=== PATIENT | female | born 1975 | race Caucasian/White ===

== ENCOUNTER 2017-06-11 15:23 | Emergency (ER) | payer BC ==
--- NOTE | 2017-06-11 15:35 | EDPHY ---
H & P Stated Complaint: mechanical fall down stairs - Personal History LMP (Females 10-55): IUD In Place Current Tetanus Diphtheria and Acellular Pertussis (TDAP): Yes - Medical/Surgical History Hx Asthma: No Hx Chronic Respiratory Disease: No Hx Diabetes: No Hx Cardiac Disease: No Hx Renal Disease: No Hx Cirrhosis: No Hx Alcoholism: No Hx HIV/AIDS: No Hx Splenectomy or Spleen Trauma: No Other PMH: hypothyroidism, depression - Social History Smoking Status: Never smoked Constitutional: Initial Vital Signs Temperature (C) 37.2 C 06/11/17 15:23 Heart Rate 75 06/11/17 15:23 Respiratory Rate 16 06/11/17 15:23 Blood Pressure 128/68 H 06/11/17 15:23 O2 Sat (%) 95 06/11/17 15:23 O2 Delivery Mode Room Air Allergies/Adverse Reactions: No Known Allergies Allergy (Unverified 06/11/17 15:29) Home Medications: Medication Instructions Recorded HYDROcodone/APAP 10/325 [Milton 1 - 2 each PO Q4-6PRN PRN #20 tab 06/11/17 10/325] PARoxetine MESYLATE 06/11/17 Synthroid 06/11/17 Medical Decision Making - Diagnostics Imaging Results: Imaging Impressions Chest CT 06/11/17 15:50 Impression: 1. Fractures involving the right 11th and 12th ribs and the right L1 transverse process. 2. No evidence of visceral injury within the chest or upper abdomen. Results called to Dr. Galloway at 5:[address] 06/11/17 17:07 Impression: 1. Right T11-L1 transverse process fractures. 2. Right 11th and 12th rib fractures. Message left with Joel Galloway M.D., on June 11, 2017 at [id number]. Imaging: Discussed imaging studies w/ residency program coordinator Radiologist, I viewed and interpreted images myself ED Course/Re-evaluation: CHIEF COMPLAINT: Right back/abdominal pain HISTORY OF PRESENT ILLNESS: The patient is a 41 y/o female arriving via EMS in a C-collar, complaining of right-sided abdominal pain secondary to a fall down several stairs at home. She has moderate pain in her right posterior ribs and right upper quadrant. She denies loss of consciousness, neck pain, dysuria, fever. She currently has an IUD and denies being . REVIEW OF SYSTEMS: A 10 point review of systems was performed and is negative with the exception of the elements mentioned in the history of present illness. PHYSICAL EXAM: HR, BP, O2 Sat, RR. Temp noted General Appearance: Alert, well hydrated, appropriate, and non-toxic appearing. Head: Atraumatic without scalp tenderness or obvious injury Eyes: Pupils equal, round, reactive to light and accommodation, EOMI, no trauma , no injection. Ears: Clear bilaterally, no perforation, normal landmarks Nose: Atraumatic, no rhinorrhea, clear. Throat: Mucus membranes moist. Neck: Supple, nontender, no lymphadenopathy. Respiratory: No retractions, no distress, no wheezes, and no accessory muscle use. Lungs are clear to auscultation bilaterally. Cardiovascular: Regular rate and rhythm, no murmurs, rubs, or gallops. Good capillary refill all extremities. Gastrointestinal: Moderate RUQ tenderness, right posterior rib tenderness, abdomen is soft, non-distended, no masses, no rebound, no guarding, no peritoneal signs. Musculoskeletal: Normal active ROM of all extremities, atraumatic. Neurological: Alert, appropriate, and interactive. Non-focal neuro. Skin: No rashes, good turgor, no nodules on palpation. Past medical history: Denies Past surgical history:Denies Family history: Noncontributory Social history: , lives in [place], non-smoker DIAGNOSTICS/PROCEDURES/CRITICAL CARE TIME: Chest CT: Nondisplaced fracture of proximal 11th and 12th rib, right nondisplaced T11-L1 fracture of transverse process. Lumbar spine CT: Nondisplaced fracture of proximal 11th and 12th rib, right L1 fracture of transverse process. Old fractures of ribs 6-9. DIFFERENTIAL DIAGNOSIS: The differential diagnosis for the patient's back pain included but was not limited to musculo-skeletal pain, epidural abscess, herniated disk, spinal fracture, rib fracture, and intra-abdominal causes including urinary system. MEDICAL DECISION MAKING: The patient is a 41 y/o female arriving in a c-collar who presents with right posterior rib and abdominal tenderness secondary to a fall down several stairs at home. She does not meet [place] head or neck CT requirements. Plan on pain management and chest CT to rule out traumatic injuries. 1mg IV Dilaudid and 4mg IV Zofran administered. 1537: C-collar was removed by myself. 1705: Spoke with Dr. Shelton Williamson, radiologist, patient has multiple vertebral rib fractures. Plan on lumbar CT for better imaging of vertebral fractures. 1900: Consulted with Dr. Antoinette Quiles, neurosurgeon. He agrees with me that the patient does not need a brace, but needs to follow up in 5-7 days. Reassessed patient and discussed imaging findings. Provided return precautions; patient is comfortable with this plan. - Data Points Laboratory Results: 06/11/17 16:01 POC Hgb 14.6 gm/dL gm/dL (12.6-16.3) POC Hct 43 % % (38-47) POC Sodium 142 mEq/L mEq/L (134-144) POC Potassium 3.8 mEq/L mEq/L (3.3-5.0) POC Chloride 105 mEq/L mEq/L (97-110) POC BUN 16 mg/dL mg/dL (7-23) POC Creatinine 0.7 mg/dL mg/dL (0.6-1.0) POC Glucose 111 mg/dL H mg/dL (70-100) Medications Given: Discontinued Medications Hydrocodone Bitart/Acetaminophen (Milton 5/325mg Prepack#6) 1 btl TAKEHOME EDNOW ONE Stop: 06/11/17 19:28 Last Admin: 06/11/17 19:36 Dose: 1 btl Hydromorphone HCl (Dilaudid) 1 mg IVP EDNOW ONE Stop: 06/11/17 15:50 Last Admin: 06/11/17 15:56 Dose: 1 mg Ondansetron HCl (Zofran) 4 mg IVP EDNOW ONE Stop: 06/11/17 15:50 Last Admin: 06/11/17 15:56 Dose: 4 mg Point of Care Test Results: 06/11/17 16:01 POC Sodium 142 POC Potassium 3.8 POC Chloride 105 POC BUN 16 POC Creatinine 0.7 POC Glucose 111 H Departure - Departure Disposition: Home, Routine, Self-Care Clinical Impression: Ribs, multiple fractures Qualifiers: Encounter type: initial encounter Fracture type: closed Laterality: right Qualified Code(s): S22.41XA - Multiple fractures of ribs, right side, initial encounter for closed fracture Lumbar transverse process fracture Qualifiers: Encounter type: initial encounter Fracture type: closed Qualified Code(s): S32.009A - Unspecified fracture of unspecified lumbar vertebra, initial encounter for closed fracture Fracture of thoracic transverse process Qualifiers: Encounter type: initial encounter Fracture type: closed Qualified Code(s): S22.009A - Unspecified fracture of unspecified thoracic vertebra, initial encounter for closed fracture Instructions: Hydrocodone/Acetaminophen (By mouth), Rib Fracture (ED), Thoracolumbar Fracture (ED) Additional Instructions: 1. Take 600mg of ibuprofen every 6-8 hours as needed for pain. 2. Take Milton as prescribed for severe pain. 3. Follow up with Dr. Antoinette Quiles, neurosurgeon, in the next 5-7 days. 4. Follow up with your primary care provider if you experience worsening symptoms. 5. Return to the ED if you experience numbness, weakness, severe redness or swelling around your fractures, fever, or other severe worsening of your symptoms. Referrals: Patient,NotPresent [Unknown] - As per Instructions Dav Quiles MD [Medical Doctor] - As per Instructions Prescriptions: HYDROcodone/APAP 10/325 [Milton 10/325] 1 - 2 each PO Q4-6PRN PRN #20 tab PRN Reason: Pain, Moderate Report Scribed for: Joel Galloway Report Scribed by: Ysabel Shah Date of Report: 06/11/17 Time of Report: 15:52
[2017-06-11] MEDS ORDERED: HYDROmorphONE/DILAUDID 1 MG/ML INJ IVP ONE (15:49)
[2017-06-11] MEDS ORDERED: ONDANSETRON 4 MG/2 ML VIAL IVP ONE (15:49)
[2017-06-11 16:08] VITALS: RESP 18; TEMP 98.2
[2017-06-11] MEDS ORDERED: IOPAMIDOL (ISOVUE-300) 100 ML BTL ONE (16:16)
[2017-06-11] MEDS ORDERED: HYDROCOD/APAP 5/325 PREPACK#6 BTL TAKEHOME ONE (19:27)
[2017-06-11 19:40] VITALS: BP 124/70; PULSE 75; O2SAT 93
== END 2017-06-11 19:40 | disposition home or self-care (01) ==
DX: S32.019A Unspecified fracture of first lumbar vertebra, initial encounter for closed fracture (principal); S22.089A Unspecified fracture of T11-T12 vertebra, initial encounter for closed fracture; S22.41XA Multiple fractures of ribs, right side, initial encounter for closed fracture; W10.8XXA Fall (on) (from) other stairs and steps, initial encounter; Y92.009 Unspecified place in unspecified non-institutional (private) residence as the place of occurrence of the external cause
CPT/HCPCS: 82947-QW; 96374; J1170; J2405; Q9967

== ENCOUNTER → 2017-11-17 | Outpatient (CLI) | payer BC | LOC: BMCIMAGING 15:37 | PROVIDERS: ATTEND Registered Nurse General Practice | DX: M50.322 Other cervical disc degeneration at C5-C6 level (principal); M25.78 Osteophyte, vertebrae; M46.02 Spinal enthesopathy, cervical region ==

== ENCOUNTER 2017-12-17 13:54 | Emergency (ER) | payer BC ==
[2017-12-17 14:05] VITALS: RESP 16; TEMP 98.4
[2017-12-17] MEDS ORDERED: MECLIZINE HCL 25 MG TAB PO ONE (14:43)
--- NOTE | 2017-12-17 14:43 | EDPHY ---
HPI/HX/ROS/PE/MDM Narrative: CHIEF COMPLAINT: Headache, vision complaints, numbness or tingling HISTORY OF PRESENT ILLNESS: The patient is a 42 y/o female complaining of weakness in her legs, numbness and tingling in her hands and legs, and headache , beginning in October. She had vertebral fractures in June. In October she developed mid to low back pain accompanied by weakness in her legs. She later developed neck pain, primarily on the left side with tingling in her left arm and both hands. The neck pain was associated with a headache extending from the back of her neck toward the front of her head. Four days ago she began seeing double (side by side) and difficulty with dark color contrast with her headaches. The tingling in her left arm has gotten worse and is described as an electric shock down her arm or leg. She has associated dizziness and nausea with eye movement. She denies vomiting, chest pain, or other associated symptoms. She has been taking 600 mg of ibuprofen to control her symptoms. She had cervical spine X-rays but no other imaging studies thus far. She denies fever, alcohol use, cigarette use, or trauma since June. She has taken acetaminophen, caffeine, and aspirin for the headache this morning. No fever, chills, chest pain, shortness of breath, palpitations, vomiting, diarrhea, urinary complaints, lightheadedness. REVIEW OF SYSTEMS: Aside from elements discussed in the HPI, a comprehensive 10-point review of systems was reviewed and is negative. PAST MEDICAL HISTORY: IUD (Mirena), vertebral fractures SOCIAL HISTORY: Non-smoker, lives in [place], VITAL SIGNS: Reviewed by me GENERAL: Well-developed, well-nourished, a bit uncomfortable secondary to pain on the left side of her neck and headache. A bit tearful. HEENT: Atraumatic. Eyes: No icterus, no injection. EOMI. STEVE. Mouth: moist mucous membranes. No erythema or lesions. Neck: No midline tenderness. Spasm and tenderness on the left paraspinous region. LUNGS: Clear to auscultation bilaterally, no wheezes, rhonchi or rales. CARDIAC: Regular rate and rhythm, no rubs, murmurs or gallops. ABDOMEN: Soft, nontender, nondistended, bowel sounds normal. BACK: No CVA tenderness. EXTREMITIES: No trauma. No edema. Range of motion is normal throughout. NEURO: Alert and oriented. Moving all four extremities easily and equally. Cranial nerves II through XII are examined and are intact (visual acuity not tested). Left director of integrated marketing strength weak compared to right. Left leg strength weak. Sensation is intact to light touch over all 4 extremities. Extraocular movements normal. SKIN: Warm and dry, no rash. PSYCHIATRIC: Normal mentation, no agitation. ED Course: The patient presents with a 2 month long history of increasing weakness in legs , back pain, neck pain, headache, and visual disturbances. She has history of a vertebral fracture in June. On exam, she has weakened left director of integrated marketing strength and weakened left leg. Sensation and extraocular movement is normal. Plan for head, cervical, and lumbar MRIs, and labs including CBC, metabolic panel, and beta-HCG. Symptom management with cyclobenzaprine, meclizine, and lidocaine patch. MRI of the brain normal, no evidence of demyelinating disease. MRI cervical spine does demonstrate disc herniation at C5-C6. Worse on the right than on the left. MRI of the lumbar spine demonstrates L5-S1 disc herniation with impingement on the left S1 nerve root. Patient was reexamined after MRIs. She reports her neck discomfort is significantly improved with a lidocaine patch. She was reassured with the findings on the MRI. I do not believe the patient needs any further imaging studies in or admission to the hospital at this time. She needs to follow up with Neurosurgery and potentially Neurology to evaluate her headaches with diplopia. Patient does say she has a history of migraines although her migraine headaches have not presented similar to today's episode. She is comfortable being discharged with a Medrol Dosepak, nonsteroidals, muscle relaxants. MDM: After history was obtained and physical exam performed, the differential for patient's symptom complex was considered including but not limited to muscular pain, herniated disc, TIA, stroke, multiple sclerosis, demyelinating disease. - Data Points Imaging Results: Brain MRI Impression: Normal brain. No white matter disease, hemorrhage, mass, or evidence of ischemia. Findings discussed with Emergency Department physician, Zaina Pham M.D., on December 17, 2017 at 1629. Dictated By: Tae Parra MD Cervical spine MRI Impression: 1. Normal cervical spine spinal cord. No white matter disease, cord compression, or edema. 2. C5-C6: Broad-based osteophyte disk complex, worse off to the right, results in mild to moderate central canal narrowing, moderate right ventral lateral recess narrowing, and moderate right neural foraminal stenosis. 3. Minimal central canal narrowing at C6-C7 due to a mild broad-based osteophyte disk complex. Findings discussed with Emergency Department physician, Zaina Pham M.D., on December 17, 2017 at 1709. Dictated By: Tae Parra MD Lumbar spine MRI: Impression: 1. Capacious lumbar spinal canal. No compression of the conus medullaris or lower aspect of the spinal cord. 2. L5-S1: Left paracentral disk herniation (protrusion) resulting in minimal mass effect upon the left S1 nerve root in the ventral lateral recess. 3. Normal T12-L1 through L4-L5 disks. Findings discussed with Emergency Department physician, Zaina Pham M.D., on December 17, 2017 at 1725. Dictated By: Tae Parra MD Imaging: Discussed imaging studies w/ butt presser Radiologist Laboratory Results: Laboratory Results 12/17/17 14:40 12/17/17 14:40 Medications Given: Discontinued Medications Cyclobenzaprine HCl (Flexeril) 10 mg PO EDNOW ONE Stop: 12/17/17 14:45 Last Admin: 12/17/17 14:54 Dose: 10 mg Meclizine HCl (Meclizine Hcl) 25 mg PO EDNOW ONE Stop: 12/17/17 14:44 Last Admin: 12/17/17 14:54 Dose: 25 mg Miscellaneous Medication (Icy Hot Lidocaine/Menthol 4%/1% Patch) 1 patch TD EDNOW ONE Stop: 12/17/17 14:45 Last Admin: 12/17/17 14:55 Dose: 1 patch Prednisone (Prednisone) 60 mg PO EDNOW ONE Stop: 12/17/17 17:33 Last Admin: 12/17/17 17:37 Dose: 60 mg General Time Seen by Provider: 12/17/17 14:17 Initial Vital Signs: Initial Vital Signs Temperature (C) 36.9 C 12/17/17 14:02 Heart Rate 67 12/17/17 14:02 Respiratory Rate 16 12/17/17 14:02 Blood Pressure 140/63 H 12/17/17 14:02 O2 Sat (%) 97 12/17/17 14:02 O2 Delivery Mode Room Air Allergies/Adverse Reactions: No Known Allergies Allergy (Unverified 06/11/17 15:29) Home Medications: Medication Instructions Recorded PARoxetine MESYLATE 06/11/17 Synthroid 06/11/17 Cyclobenzaprine [Flexeril 10 MG 10 mg PO TID PRN #20 tab 12/17/17 (RX)] methylPREDNISolone [Medrol Dose 4 mg PO DAILY #1 ea 12/17/17 [place]] Departure - Departure Disposition: Home, Routine, Self-Care Clinical Impression: Neck pain, Back pain, Headache Condition: Good Instructions: Lumbar Disc Herniation (ED), Acute Headache (ED), Cervical Disc Herniation (ED), Lower Back Exercises (ED) Additional Instructions: Please follow up with your primary care physician as soon as possible. You been given a prescription for Medrol Dosepak. Please take this as directed. This should help with the cervical and back discomfort. You may take ibuprofen as previously directed for inflammation and pain. You may use Flexeril as needed for muscle spasm. I have also given her referral to a neurosurgeon as well as a neurologist. Please follow up with Neurology for further evaluation headache complaints. Referrals: Park Taylor MD [Primary Care Provider] - As per Instructions Prescriptions: Cyclobenzaprine [Flexeril 10 MG (RX)] 10 mg PO TID PRN #20 tab PRN Reason: Muscle Spasms methylPREDNISolone [Medrol Dose [place]] 4 mg PO DAILY #1 ea Report Scribed for: Zaina Pham Report Scribed by: Marta Roper Date of Report: 12/17/17 Time of Report: 14:47 Physician Review and Approval Statement: Portions of this note were transcribed by a site medical director. I personally performed a history, physical exam, medical decision making, and confirmed accuracy of information the transcribed note.
[2017-12-17] MEDS ORDERED: LIDOCAINE 4%/MENTHOL 1% PATCH TD ONE (14:44)
[2017-12-17] MEDS ORDERED: CYCLOBENZAPRINE 10 MG TAB PO ONE (14:44)
[2017-12-17 14:59] LABS: PLATELET COUNT 257 10^3/uL (150-400)
[2017-12-17 17:17] VITALS: BP 127/55; PULSE 73; O2SAT 96
[2017-12-17] MEDS ORDERED: predniSONE 20 MG TAB PO ONE (17:32)
[2017-12-17] MEDS ORDERED: PATCH REMOVAL 1 EA PATCH TD SCH (21:00)
== END 2017-12-17 17:56 | disposition home or self-care (01) ==
DX: R51 Headache (principal); M54.5 Low back pain; M54.2 Cervicalgia
CPT/HCPCS: J7512

== ENCOUNTER → 2018-10-22 | Outpatient (CLI) | payer OTHER | LOC: FIMAGING 08:50 | PROVIDERS: ATTEND Podiatrist Foot & Ankle Surgery | DX: M24.874 Other specific joint derangements of right foot, not elsewhere classified (principal); M72.2 Plantar fascial fibromatosis; M76.71 Peroneal tendinitis, right leg; M24.271 Disorder of ligament, right ankle ==